=== PATIENT | female | born 1955 | race Caucasian/White ===

== ENCOUNTER → 2017-07-27 15:46 | Outpatient (CLI) | payer MEDICARE ==
[2014-12-18 09:49] VITALS: BMI 25.2
[~2017-07-27 15:46] MED LIST: AMANTADINE100 M1 PO; ASPIRIN81 MG PO; BACLOFEN PO; BACLOFEN20 M1 PO; CALCIUM PO; CRESTOR20 MG PO; CYMBALTA60 MG PO; DESYREL50 MG; ESTRACE2 MG PO; GLUCOPHAGE1000 MG PO; K-DUR20 MEQ PO; KLONOPIN1 MG PO; LASIX40 MG PO; LIORESAL 10 MG10 MG PO; MACROBID100 MG PO; MEDROL DOSE PACK4 MG PO; NEURONTIN600 MG PO; NEURONTIN800 MG PO; NORVASC5 MG PO; PLAVIX75 MG PO; SYNTHROID75 MCG PO; TENORMIN25 MG PO; TENORMIN50 MG PO
== END | disposition home or self-care (01) ==
LOC: D.US 14:30
DX: I65.23 Occlusion and stenosis of bilateral carotid arteries (principal); R09.89 Other specified symptoms and signs involving the circulatory and respiratory systems

== ENCOUNTER → 2017-12-10 09:30 | Outpatient (CLI) | payer MEDICARE ==
[2014-12-18 09:49] VITALS: BMI 25.2
== END | disposition home or self-care (01) ==
LOC: D.MRI 09:30
DX: G35 Multiple sclerosis (principal)

== ENCOUNTER → 2018-05-18 08:02 | Outpatient (CLI) | payer MEDICARE ==
[2014-12-18 09:49] VITALS: BMI 25.2
[~2018-05-18 08:02] MED LIST changes: +BREO ELLIPTA 11 EACH INH; +NASONEX NASAL S17 GM NS; +SPIRIVA RESPIMAT4 G1 INH; +XANAX2 MG PO; +ZANAFLEX2 M1 PO
[2018-05-18 08:47] LABS: BASOPHILS 0.2 % (0-2); EOSINOPHILS 1.1 % (0-7); HEMATOCRIT 41.8 % (36.0-48.0); HEMOGLOBIN 14.9 g/dL (12-16); IMMATURE GRANULOCYTES 0.3 % (0-5); LYMPHOCYTES 41.8 % (15-50); MCH 33.2 pg (26.0-34.0); MCHC 35.6 g/dL (31.0-37.0); MCV 93.1 fL (80.0-100.0); MEAN PLATELET VOLUME 9.6 fL (7.4-10.4); MONOCYTES 5.4 % (2-11); NEUTROPHILS 51.2 % (40-80); PLATELET COUNT 229 10x3/uL (130-400); RBC 4.49 10x6/uL (4.00-5.40); RDW 13.6 % (11.5-14.5); WBC 9.3 10x3/uL (4.8-10.8)
[2018-05-18 09:04] LABS: % SATURATION 30 % (15-55); IRON 102 ug/dl (35-150); TOTAL IRON BIND CAPACITY 338 ug/dl (260-445); UNSAT IRON BIND CAPACITY 236 ug/dl (150-375)
[2018-05-18 09:19] LABS: PROTIME 12.8 SECONDS (11.6-15.0)
[2018-05-18 09:22] LABS: ALBUMIN 3.5 g/dL (3.4-5.0); ANION GAP 12.4 mmol/L (8-16); BILIRUBIN - DIRECT 0.15 mg/dL (0.00-0.30); BILIRUBIN - INDIRECT 0.22 mg/dL (0.00-1.00); BILIRUBIN - TOTAL 0.37 mg/dL (0.2-1.3); CALCIUM 9.3 mg/dL (8.5-10.1); CARBON DIOXIDE 28.7 mmol/L (21.0-32.0); CHOL - HDL RATIO 3.4 ratio (2.3-4.1); CREATININE - SERUM 0.9 mg/dL (0.6-1.3); LDL-HDL RATIO 1.3 ratio (1.5-3.5); POTASSIUM - SERUM 4.1 mmol/L (3.5-5.1); PROTEIN - SERUM 7.2 g/dL (6.4-8.2)
[2018-05-19 07:33] LABS: FOLATE (FOLIC ACID) - SERUM 19.5 ng/mL (>3.0)
[2018-05-19 11:20] LABS: HEPATITIS C ANTIBODY <0.1 (0.0-0.9)
[2018-05-19 12:17] LABS: HAPTOGLOBIN 212 mg/dL (34-200)
[2018-05-19 14:22] LABS: ANA REFLEX - ANTICHROMATIN ABS <0.2 AI (0.0-0.9); ANA REFLEX - CENTROMERE B ABS <0.2 AI (0.0-0.9); ANA REFLEX - DBL STRANDED DNA <1 IU/mL (0-9); ANA REFLEX - DIRECT Positive (Negative); ANA REFLEX - JO-1 AB <0.2 AI (0.0-0.9); ANA REFLEX - RNP ANTIBODIES <0.2 AI (0.0-0.9); ANA REFLEX - SCL-70 <0.2 AI (0.0-0.9); ANA REFLEX - SJOGRENS AB SSB <0.2 AI (0.0-0.9); ANA REFLEX - SMITH AB <0.2 AI (0.0-0.9)
[2018-05-20 15:24] LABS: MITOCHONDRIAL ANTIBODY 4.4 Units (0.0-20.0)
== END | disposition home or self-care (01) ==
LOC: D.US 05-16 07:00 → D.LAB 05-16 07:30 → D.US 08:02
PROVIDERS: Internal Medicine Gastroenterology
DX: R79.89 Other specified abnormal findings of blood chemistry (principal)

== ENCOUNTER 2018-05-27 07:29 | Outpatient (CLI) | payer MEDICARE ==
[~2018-05-27] VITALS: Ht 167.6 cm; Wt 80.0 kg
--- NOTE | ~2018-05-27 | HEMODYNAMI ---
PATIENT:SAMANTHA MARINO MEDICAL RECORD: [id number] : 57 LOCATION:[facility] ADMISSION DATE: 05/27/18 Generatedon:05/27/201810:43 Patient name: SAMANTHA MARINO Patient #: [id number] SSN: : 1955 Date of study: 05/27/2018 Page: Of Hemodynamic Procedure Report Patient Data Patient Demographics Procedure consent was obtained First Name: SAMANTHA Gender: Female Last Name: JAMILA : 1955 [facility] Initial: FERMIN Age: 62 year(s) Patient #: [id number] Race: Additional ID: [id number] Contact details Address: [address] [place] [address] State: [place] City: [place] Zip code: [address] Past Medical History History of disease Date Diagnosis Comments CAD Allergies: No known allergies Admission Admission Data Admission Date: 05/27/2018 Admission Time: 7:29 Height (in.): 66 BSA: 1.89 (m2) Height (cm.): 167.64 BMI: 28.08 (kg/m2) Weight (lbs.): 174 Weight (kg.): 78.93 Lab Results Lab Result Date: 05/27/2018 Lab Result Time: 0:00 Biochemistry Name Units Result Min Max BUN mg/dl 11 --(-*--)-- 7 18 Creatinine mg/dl 0.7 --(*---)-- 0.6 1.3 CBC Name Units Result Min Max Hemoglobin g/dl 14.8 --(-*--)-- 13.5 17.5 Procedure Procedure Types Cath Procedure Diagnostic Procedure C [facility] w/Coronaries Sedation Charges Moderate Sedation up to 15 minutes PCI Procedure Coronary Stent Coronary Stent Initial Peripheral Cath Diagnostic Procedure 4-Vessel Subclavian Arteriogram Uni Procedure Description Procedure Date Procedure Date: 05/27/2018 Procedure Start Time: 10:26 Procedure End Time: 10:41 Procedure Staff Name Function Noe Bernstein MD Performing Physician Padma Grimes RT Monitor Karla Pedro RN Nurse Radha Velazquez RT Scrub Kalyan Bauman RN Toaster Element Repairer Procedure Data Cath Procedure Fluoroscopy Diagnostic fluoroscopy Total fluoroscopy Time: 2.9 time: 2.9 min min Diagnostic fluoroscopy Total fluoroscopy dose: 333 dose: 333 mGy mGy Contrast Material Contrast Material Type Amount (ml) Isovue 300 58 Entry Location Entry Primary Successful Side Size Upsize Upsize Entry Closure Succes sful Closure Location (Fr) 1 (Fr) 2 (Fr) Remarks Device Remarks Femoral Right 5 Fr 6 Fr Exoseal artery Short Estimated blood loss: 10 ml Diagnostic catheters Device Type Used For End Catheter Placement MULTIPACK Pigtail 5 Fr Procedure catheter MULTIPACK JL 4.0 5Fr Procedure catheter MULTIPACK 3DRC 5Fr Procedure catheter Procedure Complications No complications Procedure Medications Medication Administration Route Dosage 0.9% NaCl I.V. 100 ml/hr Oxygen etCO2 Nasal cannula 2 l/min Lidocaine 2% added to field 20 Heparin Flush Bag added to field 2 bags (1000units/500ml NS) Versed I.V. 2 mg Fentanyl I.V. 50 mcg Versed I.V. 1 mg Fentanyl I.V. 25 mcg Heparin Bolus I.V. 4000 units Hemodynamics Rest BSA: 1.89 (m2) HGB: 14.8 (g/dl) O2 Consumption: Estimated: 171.17 (ml/min) O2 Co nsumption indexed: Estimated:90.57 (ml/min/m) Heart Rate: 60 (bpm) Snapshots Pre Cath Intra NCS Post Cath Vital Signs Time Heart Resp SPO2 etCO2 NIBP (mmHg) Rhythm Pain Sedation Rate (ipm) (%) (mmHg) Status Level (bpm) 9:50:38 58 15 98 38.2 160/81(131) SB 0 (11) 10(A) , No pain 9:54:54 57 12 100 39.7 151/83(127) SB 0 (11) 10(A) , No pain 9:59:13 55 13 100 49.4 142/67(116) SB 0 (11) 10(A) , No pain 10:03:32 57 12 100 44.9 118/70(98) SB 0 (11) 10(A) , No pain 10:07:49 55 14 100 41.9 113/63(98) SB 0 (11) 10(A) , No pain 10:12:02 57 16 100 33.7 118/60(88) SB 0 (11) 10(A) , No pain 10:16:13 53 15 100 38.9 116/67(97) SB 0 (11) 10(A) , No pain 10:21:24 55 14 100 40.4 113/68(92) SB 0 (11) 10(A) , No pain 10:25:36 54 12 100 44.9 117/64(85) SB 0 (11) 10(A) , No pain 10:29:48 55 11 100 56.2 127/68(101) SB 0 (11) 10(A) , No pain 10:34:04 56 13 100 41.9 132/71(108) SB 0 (11) 9(A) , No pain 10:38:20 58 12 100 42.6 147/74(108) SB 0 (11) 10(A) , No pain Medications Time Medication Route Dose Verified Delivered Reason Notes Effectiveness by by 9:53:06 0.9% NaCl I.V. 100 Noe Karla used for ml/hr Amandeep Pedro litigation docket manager 9:53:16 Oxygen etCO2 2 Noe Karla used for Nasal l/min Amandeep Pedro procedure cannula RN 9:53:24 Lidocaine 2% added 20ml Noe Noe for local to vial Amandeep Bernstein MD anesthetic field 9:53:29 Heparin Flush added 2 Noe Noe used for Bag to bags Amandeep Bernstein MD procedure (1000units/500ml field NS) 10:21:10 Versed I.V. 2 mg Noe Karla for sedation Amandeep Pedro RN 10:21:18 Fentanyl I.V. 50 Noe Karla for sedation mcg Amandeep Pedro RN 10:29:33 Versed I.V. 1 mg Noe Karla for sedation Amandeep Pedro RN 10:29:39 Fentanyl I.V. 25 Noe Karla for sedation mcg Amandeep Pedro RN 10:32:45 Heparin Bolus I.V. 4000 Noe Karla for verif ied units Amandeep Pedro anticoagulation with Dr. ANGELA Bernstein Procedure Log Time Note 9:33:04 Kalyan Bauman RN sent for patient. Start room use. 9:33:05 Time tracking: Regular hours (M-F 7:00 - 5:00) 9:33:08 Plan of Care:Hemodynamics will remain stable., Cardiac rhythm will remain stable., Comfort level will be maintained., Respiratory function will remain adequate., Patient/ family verbilizes understanding of procedure., Procedure tolerated without complication., Recovers from procedure without complications.. 9:41:54 Patient received from Pre/Post Procedure Room to CCL 1 Alert and oriented. Tansferred to table in Supine position. 9:41:56 Warm blankets applied, and kaylee hugger turned on for patient comfort. 9:41:56 Correct patient and procedure confirmed by team. 9:41:57 Signed procedure consent form obtained from patient. 9:41:58 ECG and BP/O2 sat monitors applied to patient. 9:41:59 Full Disclosure recording started 9:49:24 Vital chart was started 9:51:26 Baseline sample Acquired. 9:51:53 Rhythm: sinus bradycardia 9:53:06 0.9% NaCl 100 ml/hr I.V. was administered by Karla Pedro RN; used for procedure; 9:53:16 Oxygen 2 l/min etCO2 Nasal cannula was administered by Karla ePdro RN; used for procedure; 9:53:23 H&P Date Dictated: 05/23/2018 Within 30 days and on chart., H&P Addendum completed by physician on day of procedure. (MUST COMPLETE FOR ALL OUTPATIENTS). 9:53:24 Lidocaine 2% 20ml vial added to field was administered by Noe Bernstein MD; for local anesthetic; 9:53:25 Pre-procedure instructions explained to patient. 9:53:25 Pre-op teaching completed and patient verbalized understanding. 9:53:28 Family in patients room. 9:53:29 Heparin Flush Bag (1000units/500ml NS) 2 bags added to field was administered by Noe Bernstein MD; used for procedure; 9:53:32 Patient NPO since Midnight. 9:53:39 Patient allergic to No known allergies 9:53:42 Is the patient allergic to Iodine/contrast media? No. 9:53:46 Is patient on blood thinner?Yes 9:53:49 ACC The patient was administered the following blood thiners within the last 24 hours: ACCPlavix 9:53:51 Patient diabetic? Yes. 9:53:52 If diabetic: On Metformin? Yes 9:53:55 If on Metformin: Last Dose? 05/24/2018 9:53:58 Previous problem with sedation/anesthesia? No ? 9:53:59 Snore? Yes 9:54:00 Sleep apnea? No 9:54:01 Deviated septum? No 9:54:02 Opens mouth fully? Yes 9:54:03 Sticks out tongue? Yes 9:54:08 Airway obstruction? Yes ASTHMA 9:54:11 Dentures? No ? 9:54:14 Pre procedure: right dorsailis pedis pulse 2+ Normal; easily identifiable; not easily obliterated 9:54:16 Patient pain scale 0/10 ?. 9:54:21 IV patent on arrival in left forearm with 0.9% NaCl at [facility]. 9:55:54 Patient Height : 66 inches 9:55:56 Patient Weight : 174 lbs 9:59:25 Zero performed for pressure channel P1 10:00:37 Zero performed for pressure channel P1 10:03:14 Lab Result : BUN 11 mg/dl 10:03:14 Lab Result : Creatinine 0.7 mg/dl 10:03:14 Lab Result : Hemoglobin 14.8 g/dl 10:03:17 Lab results completed and on chart. 10:03:22 Right groin area was prepped with chlora-prep and draped in sterile fashion 10:03:22 Alarms reviewed by R. N. 10:03:23 Sharps counted by scrub and verified by R.N. 10:03:28 Use device set Femoral Dx 10:03:29 ACIST Syringe (94520) opened to sterile field. 10:03:30 Bag Decanter (2002S) opened to sterile field. 10:03:31 ACIST Hand Control (99211) opened to sterile field. 10:03:32 ACIST Manifold (87373) opened to sterile field. 10:03:33 Tegaderm 4 x 4 (1626W) opened to sterile field. 10:03:40 Medline Cath Pack ([id number]) opened to sterile field. 10:03:41 DIAGNOSTIC WIRE .035 260cm J wire (178200) opened to sterile field. 10:03:42 DIAGNOSTIC Multipack 5Fr catheter set ([id number]) opened to sterile field. 10:03:45 SHEATH Prelude 5Fr 0.035 (LIH-4W-03-035) opened to sterile field. 10::37 --------ALL STOP TIME OUT------ 10::38 Final Timeout: patient, procedure, and site verified with staff and physician. All members of the team are in agreement. 10:20:40 Right groin site verified by team. 10::43 Physical assessment completed. ASA score P 2 - A patient with mild systemic disease as per Noe Bernstein MD. 10::47 Sedation plan: IV Moderate Sedation Medication:Versed, Fentanyl 10:: Versed 2 mg I.V. was administered by Karla Pedro RN; for sedation; 10::18 Fentanyl 50 mcg I.V. was administered by Karla Pedro RN; for sedation; 10::42 Procedure started. 10::37 Local anesthetic to right femoral artery with Lidocaine 2% by Noe Bernstein MD.INITIAL ACCESS ONLY 10:28:03 A 5 Fr sheath was inserted into the Right Femoral artery 10::21 A MULTIPACK Pigtail 5 Fr catheter was advanced over the wire and used for Procedure. 10:28:24 LV gram done using ALMEIDA 10::27 Injector settings: Ml/sec: 10, Volume: 20, 10:29:03 EF : 60 % 10:29:05 Catheter removed. 10:29:10 A MULTIPACK JL 4.0 5Fr catheter was advanced over the wire and used for Procedure. 10:29:33 Versed 1 mg I.V. was administered by Karla Pedro RN; for sedation; 10::39 Fentanyl 25 mcg I.V. was administered by Karla Pedro RN; for sedation; 10:30:27 LCA angiography performed. 10:30:36 Catheter removed. 10:30:41 A MULTIPACK 3DRC 5Fr catheter was advanced over the wire and used for Procedure. 10:30:48 RCA angiography performed. 10:31:33 Left subclavian angiography performed 10::37 Catheter removed. 10:31:39 SHEATH 6FR [place] (FGP088) opened to sterile field. 10:31:46 CHOICE PT Extra Support 182cm wire ([id number]) opened to sterile field. 10:31:51 INFLATOR Merit BasixCompak (HI0160) opened to sterile field. 10:32:29 GUIDE 6FR XBLAD 3.5 catheter ([id number]) opened to sterile field. 10:32:45 Heparin Bolus 4000 units I.V. was administered by Karla Pedro RN; for anticoagulation; verified with Dr. Bernstein 10:32:54 Sheath upsized to a 6 Fr Short. 10:33:12 6 Fr XBLAD 3.5 guide catheter was inserted over the wire 10:34:05 CHOICE ES 182 wire advanced. 10:34:55 Wire advanced across lesion. 10:35:54 Place stent Inflation Number: 1 A CARMEN RX 3.0 x 18 stent ([id number]) was prepped and advanced across the Mid LAD. The stent was deployed at 17 HALEY for 0:10 (min:sec). 10:36:10 Inflation number: 2 The stent balloon was then re-inflated across the Mid LAD to 17 HALEY for 0:10 (min:sec). 10:36:25 Stent catheter was removed intact over wire. 10:36:26 Wire removed. 10:36:26 Guide catheter removed. 10:36:41 EXOSEAL 6Fr (EX600) opened to sterile field. 10:36:51 Sheath removed intact; hemostasis achieved with Exoseal to the Right Femoral artery. 10:36:58 Procedure ended.(Physican Out) 10:38:22 Fluoroscopy time 02.90 minutes. 10:38:26 Flurop Dose total: 333 10:38:26 Fluoroscopy dose: 333 mGy 10:38:29 Contrast amount:Isovue 300 58ml. 10:38:33 Post-op/insertion site Right Femoral artery dressed using a 4 x 4 and Tegaderm. 10:38:37 Post right femoral artery:stable, soft, clean and dry 10:38:41 Post-procedure physical assessment completed. ASA score P 2 - A patient with mild systemic disease as per Noe Bernstein MD. 10:38:44 Post procedure rhythm: sinus rhythm 10:38:46 Estimated blood loss: 10 ml 10:38:48 Post procedure instruction explained to patient.Patient verbalizes understanding. 10:38:48 Patient needs reinforcement of post procedure teaching. 10:39:17 Procedure type changed to Cath procedure, Diagnostic procedure, LHC, LHC w/Coronaries, Sedation Charges, Moderate Sedation up to 15 minutes, PCI procedure, Coronary Stent, Coronary Stent Initial, Peripheral Cath Diagnostic Procedure, 4-Vessel, Subclavian Arteriogram Uni 10:41:27 Procedure and supply charges have been captured, reviewed, submitted and are correct. 10:41:27 Vital chart was stopped 10:41:31 Procedure Complication : No complications 10:41:33 See physician's report for complete and final results. 10:41:35 Report given to Pre/Post Procedure Room. 10:41:37 Patient transfered to Pre/Post Procedure Room with Bed. 10:41:39 Procedure ended. 10:41:39 Full Disclosure recording stopped 10:41:44 End room use (Document Last) Intervention Summary Intervention Notes Time ActionType Lesion and Equipment Used Action# Pressure Duration Attributes 10:35:54 Place stent Mid LAD CARMEN RX 3.0 x 1 17 00:10 18 stent ([id number]) 10:36:10 Reinflate Mid LAD CARMEN RX 3.0 x 2 17 00:10 stent 18 stent balloon ([id number]) Device Usage Item Name Manufacture Quantity Catalog Number Hospital Part Current Minimal Lot# / Charge Number Stock Stock Serial# Code ACIST Syringe Acist 1 97199 847407 638118 806788 20 (67828) Medical [employer] Bag Decanter Microtek 1 2002S 589791 16954 227315 5 (2002S) Medical Inc. ACIST Hand Acist 1 78057 589565 543133 196333 5 Control (80966) [employer] Systems Inc ACIST Manifold Acist 1 83651 397064 968128 004888 5 (65818) Medical Systems Inc Tegaderm 4 x 4 3M 1 1626W 345876 977730 528949 5 (1626W) Medline Cath Medline 1 [id number] 523746 47656 837828 5 Pack ([id number]) DIAGNOSTIC WIRE St Beny 1 009447 783687 194027 061383 30 .035 260cm J wire (532004) DIAGNOSTIC Cardinal 1 EY5368 516823 62870 655750 30 Multipack 5Fr Health catheter set ([id number]) SHEATH Prelude Merit 1 FFL-4I-04-035 903271 810526 252573 5 5Fr 0.035 Medical ([id number]-6Z-60-035) MULTIPACK Cardinal 1 157630 5 Pigtail 5 Fr Health catheter MULTIPACK JL Cardinal 1 518149 5 4.0 5Fr Health catheter MULTIPACK 3DRC Cardinal 1 288107 5 5Fr catheter Health SHEATH 6FR Terumo 1 ODP512 964541 038508 719643 40 [place] (SPR874) CHOICE PT Extra [place] 1 [id number] 296734 082239 403251 5 Support 182cm Scientific wire ([id number]) INFLATOR Merit Merit 1 RJ0809 759006 952092 668642 15 [facility] (PH1871) GUIDE 6FR XBLAD Cardinal 1 [id number] 770265 099457 360817 10 3.5 catheter Health ([id number]) CARMEN RX 3.0 x Medtronic 1 [id number] 132086 9025601 120257 5 [id number] 18 stent ([id number]) EXOSEAL 6Fr Cardinal 1 EX600 209580 097287 726248 10 (EX600) Health Signature Audit [place] Stage Time Signature Unsigned Intra-Procedure 05/27/2018 Padma Grimes 10:43:55 AM RT(R) Signatures Monitor : Padma Grimes Signature : RT Date : Time : [address] [place] [address]
--- NOTE | ~2018-05-27 | OP ---
PATIENT NAME: SAMANTHA MARINO MEDICAL RECORD: [id number] :57 LOCATION:D.[facility] ADMISSION DATE: SURGEON: LEONOR MESSINA MD DATE OF OPERATION: 05/27/2018 DATE OF SERVICE: 05/27/2018 PROCEDURES: 1. PTCA stent LAD. 2. Left heart catheterization. 3. Selective coronary angiography. 4. Left ventriculogram. 5. Subclavian angiography. INDICATION: Angina, left arm claudication, peripheral vascular disease, previous subclavian stenting, coronary artery disease. PROCEDURE IN DETAIL: After informed consent was obtained and after a detailed explanation of risks, benefits as well as alternative therapies, the patient elected to proceed with angiogram and angioplasty. The right femoral area was prepped and draped in normal sterile fashion. The right femoral artery was cannulated via modified Seldinger technique with placement of 6-Indonesian sheath. All catheters exchanged through this sheath. FINDINGS: The left ventriculogram was performed in standard 30-degree ALMEIDA view, reveals good cardiac wall motion throughout all segments. Overall ejection fraction estimated at 60%. SELECTIVE CORONARY ANGIOGRAPHY: 1. Left main is with no significant angiographic disease. 2. Left anterior descending has previously placed stents with 75-80% in-stent restenosis in the mid vessel. 3. Left circumflex has previously placed stents, these are widely patent with no significant restenosis. No disease elsewise. 4. Right coronary has mild irregularities, but no flow-limiting stenosis. 5. The left subclavian has a previously placed stent. This is widely patent with minimal in-stent restenosis. No disease elsewise throughout the subclavian. PTCA STENT OF THE LAD: The stent used was a 3.0 x 18 mm David. Result was 0% residual stenosis. OVERALL IMPRESSION: Successful percutaneous transluminal coronary angioplasty stent of the left anterior descending going from 75-80% in-stent restenosis to 0% residual stenosis. TRANSINT:[id number] Voice Confirmation ID: [id number] DOCUMENT ID: [id number] OPERATIVE REPORT [id number] SAMANTHA MARINO JEFFREY MD at 1059 CC: [id number] DICTATION DATE: 05/27/18 1044 OFFICE 365 CONSULTANT: 05/27/18 1052 DEP CLI 05/27/18 [id number] [place] [address]
[~2018-05-27 07:29] MED LIST changes: -BREO ELLIPTA 11 EACH INH; -NASONEX NASAL S17 GM NS; -SPIRIVA RESPIMAT4 G1 INH; -XANAX2 MG PO; -ZANAFLEX2 M1 PO
[2018-05-27] MEDS ORDERED: ZANAFLEX2 M1 PO (08:11)
[2018-05-27] MEDS ORDERED: BREO ELLIPTA 11 EACH INH (08:11)
[2018-05-27] MEDS ORDERED: KLONOPIN1 MG PO (08:13)
[2018-05-27] MEDS ORDERED: SPIRIVA RESPIMAT4 G1 INH (08:14)
[2018-05-27] MEDS ORDERED: NASONEX NASAL S17 GM NS (08:15)
[2018-05-27] MEDS ORDERED: XANAX2 MG PO (08:16)
[2018-05-27 08:18] VITALS: BP 115/51; Ht 167.6 cm; Wt 80.0 kg
[2018-05-27 08:26] LABS: BASOPHILS 0.3 % (0-2); EOSINOPHILS 1.5 % (0-7); HEMATOCRIT 42.3 % (36.0-48.0); HEMOGLOBIN 14.8 g/dL (12-16); IMMATURE GRANULOCYTES 0.2 % (0-5); LYMPHOCYTES 42.1 % (15-50); MCH 32.7 pg (26.0-34.0); MCV 93.6 fL (80.0-100.0); MEAN PLATELET VOLUME 9.8 fL (7.4-10.4); MONOCYTES 7.1 % (2-11); NEUTROPHILS 48.8 % (40-80); PLATELET COUNT 228 10x3/uL (130-400); RBC 4.52 10x6/uL (4.00-5.40); RDW 13.8 % (11.5-14.5); WBC 9.6 10x3/uL (4.8-10.8)
[2018-05-27 08:40] LABS: CALC OSMOLALITY 282 mosm/kg (275-300); CALCIUM 9.4 mg/dL (8.5-10.1); CARBON DIOXIDE 26.7 mmol/L (21.0-32.0); CHLORIDE - SERUM 105 mmol/L (98-107); CREATININE - SERUM 0.7 mg/dL (0.6-1.3); GLUCOSE 116 mg/dL (74-106); POTASSIUM - SERUM 3.8 mmol/L (3.5-5.1); SODIUM 142 mmol/L (136-145); UREA NITROGEN 11 mg/dL (7-18); eGFR NON AFRICAN AMERICAN 90 mL/min (90-120)
== END 2018-05-27 15:22 | disposition home or self-care (01) ==
LOC: D.CATH 07:29
PROVIDERS: Internal Medicine Interventional Cardiology
DX: I25.119 Atherosclerotic heart disease of native coronary artery with unspecified angina pectoris (principal); T82.855A Stenosis of coronary artery stent, initial encounter; I70.218 Atherosclerosis of native arteries of extremities with intermittent claudication, other extremity; T82.856A Stenosis of peripheral vascular stent, initial encounter; Z01.812 Encounter for preprocedural laboratory examination

== ENCOUNTER → 2018-06-14 18:10 | Outpatient (CLI) | payer MEDICARE ==
[2018-05-27 08:18] VITALS: BMI 28.4
[~2018-06-14 18:10] MED LIST changes: +BREO ELLIPTA 11 EACH INH; +NASONEX NASAL S17 GM NS; +SPIRIVA RESPIMAT4 G1 INH; +XANAX2 MG PO; +ZANAFLEX2 M1 PO
== END | disposition home or self-care (01) ==
LOC: D.LABREF 18:10
DX: D72.829 Elevated white blood cell count, unspecified (principal)

== ENCOUNTER → 2018-06-24 08:18 | Outpatient (CLI) | payer MEDICARE ==
[2018-05-27 08:18] VITALS: BMI 28.4
== END | disposition home or self-care (01) ==
LOC: D.NM 08:15
DX: N28.89 Other specified disorders of kidney and ureter (principal)

== ENCOUNTER 2018-06-29 07:55 | Outpatient (CLI) | payer MEDICARE ==
[2018-05-27 08:18] VITALS: BMI 28.4
== END 2018-06-29 23:59 | disposition home or self-care (01) ==
LOC: D.MAMMO 07:55
DX: Z12.31 Encounter for screening mammogram for malignant neoplasm of breast (principal)

== ENCOUNTER → 2018-07-21 07:30 | Outpatient (CLI) | payer MEDICARE ==
[2018-05-27 08:18] VITALS: BMI 28.4
== END | disposition home or self-care (01) ==
LOC: D.MRI 07:30
DX: N28.89 Other specified disorders of kidney and ureter (principal)

== ENCOUNTER → 2018-08-19 16:26 | Outpatient (CLI) | payer MEDICARE ==
[2018-05-27 08:18] VITALS: BMI 28.4
== END | disposition home or self-care (01) ==
LOC: D.CT 16:26
DX: I73.9 Peripheral vascular disease, unspecified (principal); M79.605 Pain in left leg; M79.604 Pain in right leg

== ENCOUNTER 2018-09-13 08:32 | Outpatient (CLI) | payer MEDICARE ==
[~2018-09-13] VITALS: Ht 167.6 cm; Wt 80.5 kg
--- NOTE | ~2018-09-13 | HEMODYNAMI ---
PATIENT:SAMANTHA MARINO MEDICAL RECORD: [id number] : 57 LOCATION:[facility] ADMISSION DATE: 09/13/18 Generatedon:09/13/201811:42 Patient name: SAMANTHA MARINO Patient #: [id number] SSN: : 1955 Date of study: 09/13/2018 Page: Of Hemodynamic Procedure Report Patient Data Patient Demographics Procedure consent was obtained First Name: SAMANTHA Gender: Female Last Name: JAMILA : 1955 Middle Initial: FERMIN Age: 63 year(s) Patient #: [id number] Race: Additional ID: [id number] Contact details [address]: [address] [place] [address] State: [place] City: [place] Zip code: [address] Past Medical History History of disease Date Diagnosis Comments CAD Allergies: No known allergies Admission Admission Data Admission Date: 09/13/2018 Admission Time: 8:32 Procedure Procedure Types Cath Procedure Peripheral Cath Diagnostic Procedure Abd/Extremity Extremities Left Lower Ext Arterio Procedure Description Procedure Date Procedure Date: 09/13/2018 Procedure Start Time: 10:31 Procedure Staff Name Function João Mejia MD Performing Physician Isaias York RT Monitor Nica Kwok RN Nurse Procedure Data Cath Procedure Fluoroscopy Diagnostic fluoroscopy Total fluoroscopy Time: 8.5 time: 8.5 min min Diagnostic fluoroscopy Total fluoroscopy dose: 855 dose: 855 mGy mGy Contrast Material Contrast Material Type Amount (ml) Isovue 300 55 Entry Location Entry Primary Successful Side Size Upsize Upsize Entry Closure Succes sful Closure Location (Fr) 1 (Fr) 2 (Fr) Remarks Device Remarks Femoral Right 5 Fr Exoseal artery Diagnostic catheters Device Type Used For End Catheter Placement DIAGNOSTIC IMT 5Fr Catheter ([id number]) Procedure Medications Medication Administration Route Dosage Heparin Flush Bag added to field 3 bags (1000units/500ml NS) Lidocaine 1% added to field 20 Versed I.V. 1 mg Fentanyl I.V. 50 mcg Heparin Bolus I.V. 4000 units Versed I.V. 1 mg Fentanyl I.V. 50 mcg Hemodynamics Rest Heart Rate: 66 (bpm) Snapshots Pre Cath Intra NCS Post Cath Vital Signs Time Heart Resp SPO2 etCO2 NIBP (mmHg) Rhythm Pain Sedation Rate (ipm) (%) (mmHg) Status Level (bpm) 10:15:16 63 13 99 37.1 137/76(112) NSR 0 (11) 9(A) , No pain 10:19:26 67 12 100 37.1 137/76(126) NSR 0 (11) 9(A) , No pain 10:23:40 66 11 100 37.8 143/83(121) NSR 0 (11) 9(A) , No pain 10:27:54 65 11 100 37.1 140/77(119) NSR 0 (11) 9(A) , No pain 10:32:12 66 12 99 37.8 146/78(113) NSR 0 (11) 9(A) , No pain 10:36:30 64 10 100 38.6 144/81(109) NSR 0 (11) 9(A) , No pain 10:40:48 66 9 99 39.3 144/72(114) NSR 0 (11) 8(A) , No pain 10:45:02 64 17 99 30.2 135/78(112) NSR 0 (11) 8(A) , No pain 10:49:18 64 9 99 31.8 139/70(114) NSR 0 (11) 8(A) , No pain 10:53:34 63 10 99 33.3 122/76(105) NSR 0 (11) 8(A) , No pain 10:57:46 64 10 99 30.2 131/71(110) NSR 0 (11) 8(A) , No pain 11:02:02 65 11 99 40.1 144/74(113) NSR 0 (11) 8(A) , No pain 11:06:20 66 11 100 41.6 150/77(125) NSR 0 (11) 8(A) , No pain 11:10:38 66 10 100 42.4 152/80(123) NSR 0 (11) 8(A) , No pain 11:14:56 68 11 100 41.6 154/80(131) NSR 0 (11) 8(A) , No pain 11:19:16 69 12 99 39.3 159/78(132) NSR 0 (11) 8(A) , No pain 11:23:35 70 11 99 40.1 153/83(125) NSR 0 (11) 8(A) , No pain 11:27:53 68 11 98 43.9 137/75(117) NSR 0 (11) 8(A) , No pain 11:32:09 69 9 98 44.6 155/79(119) NSR 0 (11) 8(A) , No pain 11:36:29 68 9 98 43.1 138/75(111) NSR 0 (11) 8(A) , No pain 11:40:45 69 7 98 43.1 140/76(106) NSR 0 (11) 8(A) , No pain Medications Time Medication Route Dose Verified Delivered Reason Notes Effe ctiveness by by 10:13:37 Heparin Flush added 3 João Moyer used for Bag to bags Roberto Mejia procedure (1000units/500ml field MD FAGAN NS) 10:13:48 Lidocaine 1% added 20ml João Moyer for local to vial Roberto Mejia anesthetic field MD FAGAN 10:38:32 Versed I.V. 1 mg João Paz for Roberto Kwok RN sedation 10:38:43 Fentanyl I.V. 50 João Paz for mcg Roberto Kwok RN sedation 10:53:50 Heparin Bolus I.V. 4000 João Paz Per units Roberto Kwok RN physician 11:18:30 Versed I.V. 1 mg João Paz for Roberto Kwok RN sedation 11:18:39 Fentanyl I.V. 50 João Paz for mcg Roberto Kwok RN sedation Procedure Log Time Note 9:57:56 Brandi Kwok RN sent for patient. Start room use. 9:58:30 Time tracking: Regular hours (M-F 7:00 - 5:00) 9:58:43 Plan of Care:Hemodynamics will remain stable., Cardiac rhythm will remain stable., Comfort level will be maintained., Respiratory function will remain adequate., Patient/ family verbilizes understanding of procedure., Procedure tolerated without complication., Recovers from procedure without complications.. 9:58:54 Patient received from Outpatients to IR Alert and oriented. Tansferred to table in Supine position. 9:58:55 Correct patient and procedure confirmed by team. 9:58:58 Signed procedure consent form obtained from patient. 9:58:59 ECG and BP/O2 sat monitors applied to patient. 9:59:01 Full Disclosure recording started 9:59:02 - 9:59:05 H&P Date Dictated: 09/13/2018 H&P Addendum completed by physician on day of procedure. (MUST COMPLETE FOR ALL OUTPATIENTS). 9:59:06 Pre-procedure instructions explained to patient. 9:59:06 Pre-op teaching completed and patient verbalized understanding. 9:59:08 Family in waiting room. 9:59:09 Patient NPO since Midnight. 9:59:17 Patient allergic to No known allergies 9:59:21 Is the patient allergic to Iodine/contrast media? No. 9:59:29 Is patient on blood thinner?Yes 9:59:33 ACC The patient was administered the following blood thiners within the last 24 hours: ACCPlavix 9:59:34 Patient diabetic? Yes. 9:59:36 If diabetic: On Metformin? Yes 9:59:42 If on Metformin: Last Dose? 09/12/2018 9:59:44 ----Pre-sedation anethsthesia assessment.---- 9:59:48 Previous problem with sedation/anesthesia? No ? 9:59:50 Snore? No 9:59:51 Sleep apnea? No 9:59:53 Deviated septum? No 9:59:55 Opens mouth fully? Yes 9:59:57 Sticks out tongue? Yes 10:00:00 Airway obstruction? No ? 10:00:07 Dentures? Yes IN 10:00:08 - 10:00:12 Use device set IR Diagnostic 10:00:13 ACIST Syringe (09589) opened to sterile field. 10:00:13 ACIST Hand Control (94525) opened to sterile field. 10:00:14 ACIST Manifold (80396) opened to sterile field. 10:00:14 Bag Decanter (2002S) opened to sterile field. 10:00:15 Sterile Angiographic Pack opened to sterile field. 10:00:15 Tegaderm 4 x 4 (1626W) opened to sterile field. 10:05:40 Pre procedure: right dorsailis pedis pulse Doppler 10:05:43 Pre procedure: left dorsailis pedis pulse Doppler 10:05:46 Pre procedure: right posterior tibial pulse Doppler 10:05:49 Pre procedure: left posterior tibial pulse Doppler 10:05:54 Patient pain scale 0/10 NO PAIN. 10:06:02 IV patent on arrival in right forearm with 0.9% NaCl at [facility]. 10:06:03 Sharps counted by scrub and verified by R.N. 10:06:04 Alarms reviewed by R. N. 10:06:06 Right groin area was prepped with chlora-prep and draped in sterile fashion 10:13:37 Heparin Flush Bag (1000units/500ml NS) 3 bags added to field was administered by João Mejia MD; used for procedure; 10:13:48 Lidocaine 1% 20ml vial added to field was administered by João alfaro MD; for local anesthetic; 10:14:05 Vital chart was started 10:14:06 Baseline sample Acquired. 10:30:38 --------ALL STOP TIME OUT------ 10:30:39 Final Timeout: patient, procedure, and site verified with staff and physician. All members of the team are in agreement. 10:30:40 Right groin site verified by team. 10:30:44 Fire Safety Assessment: A--An alcohol-based skin anteseptic being used preoperatively., C--Open oxygen or nitrous oxide is being used. 10:30:48 Sedation plan: IV Moderate Sedation Medication:Versed, Fentanyl 10:30:58 Procedure started. 10:31:01 Local anesthetic to right femoral artery with Lidocaine 1% by João Mejia MD.INITIAL ACCESS ONLY 10:37:21 BENTSON 145cm wire (B92380) opened to sterile field. 10:37:22 CORDERO 260 wire (C90719) opened to sterile field. 10:37:23 SHEATH 6FR Destination (RSR01) opened to sterile field. 10:37:24 TUBING Contrast Injection High Pressure (JCD830I) opened to sterile field. 10:37:25 SHEATH 5FR Challenge (ZFB841) opened to sterile field. 10:37:25 Micropuncture VSI 4FR kit opened to sterile field. 10:37:28 A DIAGNOSTIC IMT 5Fr Catheter ([id number]) was advanced over the wire an d used for . 10:37:31 Access obtained with 4Fr micropunture. 10:37:44 A 5 Fr sheath was inserted into the Right Femoral artery 10:38:32 Versed 1 mg I.V. was administered by Brandi Kwok RN; for sedation; 10:38:43 Fentanyl 50 mcg I.V. was administered by Brandi Kwok RN; for sedation ; 10:48:41 ROADRUNNER .035 260 glide wire (Q97299) opened to sterile field. 10:49:15 CXI SUPPORT .035 135 CM STR catheter (H45248) opened to sterile field. 10:52:57 INFLATOR BasixTOUCH (CA6877) opened to sterile field. 10:53:50 Heparin Bolus 4000 units I.V. was administered by Brandi Kwok RN; Per physician; 10:58:09 Inflate balloon Inflation number: 1 A Evercross 7 x 8 x 135 Balloon ([id number]) was prepped and advanced across the Proximal Common Iliac, Left, then inflated to 7 HALEY for 0:20 (min:sec). 11:10:55 Inflate balloon Inflation number: 1 A Evercross 5 x 6 x 135 Balloon ([id number]) was prepped and advanced across the Mid Superficial Femoral, Left, then inflated to 10 HALEY for 0:07 (min:sec). 11:12:35 SHEATH 6FR Challenge (YAI307) opened to sterile field. 11:18:30 Versed 1 mg I.V. was administered by Brandi Kwok RN; for sedation; 11:18:39 Fentanyl 50 mcg I.V. was administered by Brandi Kwok RN; for sedation ; 11:22:39 Place stent Inflation Number: 1 A Visipro 7 x 27 x 135 Stent ([id number]) was prepped and advanced across the Proximal Common Iliac, Right. The stent was deployed at 10 HALEY for 0:08 (min:sec). 11:24:52 SHEATH 6FR Challenge (EDZ655) opened to sterile field. 11:26:40 EXOSEAL 6Fr (EX600) opened to sterile field. 11:29:17 Sheath removed intact; hemostasis achieved with Exoseal to the Right Femoral artery. 11:30:26 Procedure ended.(Physican Out) 11:30:44 Fluoroscopy time 08.50 minutes. 11:30:47 Fluoroscopy dose: 855 mGy 11:30:47 Flurop Dose total: 855 11:30:49 Sharps counted by scrub and verified by R.N. 11:32:17 Insertion/operative site no bleeding no hematoma. 11:32:21 Post-op/insertion site Right Femoral artery dressed using a 4 x 4 and Tegaderm. 11:32:23 Post Procedure Pulses reassessed and unchanged 11:32:24 Post procedure instruction explained to patient.Patient verbalizes understanding. 11:32:25 Procedure and supply charges have been captured, reviewed, submitted an d are correct. 11:33:11 Contrast amount:Isovue 300 55ml. 11:41:20 Report given to Outpatients. 11:41:23 Patient transfered to Outpatients with Stretcher. 11:42:09 Vital chart was stopped Intervention Summary Intervention Notes Time ActionType Lesion and Equipment Used Action# Pressure Duration Attributes 10:58:09 Inflate Proximal Evercross 7 x 8 x 1 7 00:20 balloon Common 135 Balloon Iliac, Left ([id number]) 11:10:55 Inflate Mid Evercross 5 x 6 x 1 10 00:07 balloon Superficial 135 Balloon Femoral, ([id number]) Left 11:22:39 Place stent Proximal Visipro 7 x 27 x 1 10 00:08 Common 135 Stent Iliac, ([id number]) Right Device Usage Item Name Manufacture Quantity Catalog Number [facility] nt Minimal Lot# / Charge Number Stock Stock Serial# Code ACIST Syringe Acist 1 58026 072327 302515 31885 1 20 (47996) [employer] ACIST Hand Acist 1 53676 887744 046691 36591 6 5 Control (88343) [employer] ACIST Manifold Acist 1 70470 874960 680827 32038 3 5 (71745) [employer] Bag Decanter Microtek 1 2001S 336653 37685 98832 7 5 (2001S) Medical Inc. Sterile Cardinal 1 [id number] 714532 05826 3 5 Angiographic Pack Health Tegaderm 4 x 4 3M 1 1626W 836334 601330 35941 2 5 (1626W) BENTSON 145cm [employer] 1 K55819 265259 65842 8 5 wire (M98201) CORDERO 260 wire [employer] 1 N30471 676037 29807 75505 0 5 (Q07282) SHEATH 6FR Terumo 1 RSR01 113507 78736 25398 9 5 Destination (RSR01) TUBING Contrast Merit 1 [id number] 348784 900989 31731 3 5 Injection High Medical Pressure (RBR812Y) SHEATH 5FR Terumo 1 HET011 374633 980132 20832 2 5 Challenge (GBK216) Micropuncture VSI VSI VASCULAR 1 7266V 826403 29553 7 5 4FR kit SOLUTIONS DIAGNOSTIC IMT [place] 1 [id number] 694666 219045 50771 5 [id number] 5Fr Catheter Scientific ([id number]) ROADRUNNER .035 [employer] 1 R13813 302424 189253 57285 1 5 [id number] 260 glide wire (T56380) CXI SUPPORT .035 [employer] 1 W50859 229686 602460 99476 3 5 [id number] 135 CM STR catheter (P67740) INFLATOR Merit 1 CT0828 847679 801674 59148 7 5 [employer] Medical (CT8064) Evercross 7 x 8 x Medtronic 1 [id number] 474249 084644 11430 5 5 Q485171 135 Balloon ([id number]) Evercross 5 x 6 x Medtronic 1 [id number] 684122 530555 52109 7 5 [id number] 135 Balloon ([id number]) SHEATH 6FR Terumo 2 SSC683 792022 129603 38443 2 40 Challenge (FFY135) Visipro 7 x 27 x Medtronic 1 GZA18-73-24-910 748113 930622 83111 7 5 [id number] 135 Stent (URM15-52-51-696) EXOSEAL 6Fr Cardinal 1 EX600 549176 883744 71036 5 10 [id number] (EX600) Health Signature [employer] [place] Stage Time Signature Unsigned Intra-Procedure 09/13/2018 Isaias 11:41:56 AM Chela RT (R) (CV) Signatures Monitor : Isaias Signature : Chela RT Date : Time : [address] [place] [address]
[2018-09-13 09:05] LABS: BASOPHILS 0.5 % (0-2); EOSINOPHILS 1.5 % (0-7); HEMATOCRIT 42.1 % (36.0-48.0); HEMOGLOBIN 14.8 g/dL (12-16); IMMATURE GRANULOCYTES 0.3 % (0-5); LYMPHOCYTES 36.7 % (15-50); MCH 33.2 pg (26.0-34.0); MCHC 35.2 g/dL (31.0-37.0); MCV 94.4 fL (80.0-100.0); MONOCYTES 8.2 % (2-11); NEUTROPHILS 52.8 % (40-80); PLATELET COUNT 218 10x3/uL (130-400); RBC 4.46 10x6/uL (4.00-5.40); WBC 10.4 10x3/uL (4.8-10.8)
[2018-09-13 09:07] LABS: CALC OSMOLALITY 288 mosm/kg (275-300); CALCIUM 8.8 mg/dL (8.5-10.1); CARBON DIOXIDE 28.7 mmol/L (21.0-32.0); CHLORIDE - SERUM 108 mmol/L (98-107); CREATININE - SERUM 0.7 mg/dL (0.6-1.3); GLUCOSE 121 mg/dL (74-106); POTASSIUM - SERUM 4.5 mmol/L (3.5-5.1); SODIUM 145 mmol/L (136-145); UREA NITROGEN 10 mg/dL (7-18); eGFR NON AFRICAN AMERICAN 90 mL/min (90-120)
[2018-09-13 09:09] LABS: APTT 26.7 SECONDS (22.8-39.4); INR 1.03 (0.85-1.17)
[2018-09-13 09:20] VITALS: BP 121/67; Ht 167.6 cm; Wt 80.5 kg
--- NOTE | 2018-09-13 17:43 | NUR ---
1157 SEE POST PROCEDURE CHECKLIST FOR VITAL SIGN
== END 2018-09-13 16:30 | disposition home or self-care (01) ==
LOC: D.SP 08:32 → D.OPS 08:32 → D.SP 10:00 → D.RAD 10:00 → D.OPS 16:30
PROVIDERS: Radiology Diagnostic Radiology
DX: I70.213 Atherosclerosis of native arteries of extremities with intermittent claudication, bilateral legs (principal); T82.856A Stenosis of peripheral vascular stent, initial encounter; Z01.812 Encounter for preprocedural laboratory examination

== ENCOUNTER → 2018-09-15 10:07 | Outpatient (CLI) | payer MEDICARE ==
[2018-09-13 09:20] VITALS: BMI 28.6
[2018-09-15 11:05] LABS: ANION GAP 15.1 mmol/L (8-16); CALCIUM 8.2 mg/dL (8.5-10.1); CARBON DIOXIDE 26.7 mmol/L (21.0-32.0); CREATININE - SERUM 0.9 mg/dL (0.6-1.3); POTASSIUM - SERUM 3.8 mmol/L (3.5-5.1)
== END | disposition home or self-care (01) ==
LOC: D.LAB 10:07
PROVIDERS: Radiology Diagnostic Radiology
DX: N17.9 Acute kidney failure, unspecified (principal)

== ENCOUNTER → 2018-11-14 06:36 | Outpatient (CLI) | payer MEDICARE ==
[2018-09-13 09:20] VITALS: BMI 28.6
[2018-11-14 07:22] LABS: ALBUMIN 3.6 g/dL (3.4-5.0); BILIRUBIN - DIRECT 0.08 mg/dL (0.00-0.30); BILIRUBIN - INDIRECT 0.31 mg/dL (0.00-1.00); BILIRUBIN - TOTAL 0.39 mg/dL (0.2-1.3); PROTEIN - SERUM 7.7 g/dL (6.4-8.2)
== END | disposition home or self-care (01) ==
LOC: D.LAB 11-07 08:00 → D.US 11-07 08:00 → D.LAB 11-07 08:30 → D.US 06:36
PROVIDERS: ATTEND Internal Medicine Gastroenterology
DX: K76.0 Fatty (change of) liver, not elsewhere classified (principal); R74.8 Abnormal levels of other serum enzymes

== ENCOUNTER → 2018-11-23 12:46 | Outpatient (CLI) | payer MEDICARE ==
[2018-09-13 09:20] VITALS: BMI 28.6
== END | disposition home or self-care (01) ==
LOC: D.LAB 12:46
PROVIDERS: ATTEND Internal Medicine Gastroenterology
DX: K76.0 Fatty (change of) liver, not elsewhere classified (principal); R94.5 Abnormal results of liver function studies

== ENCOUNTER → 2019-01-16 08:44 | Outpatient (CLI) | payer MEDICARE ==
[2018-09-13 09:20] VITALS: BMI 28.6
== END | disposition home or self-care (01) ==
LOC: D.MRI 08:44
PROVIDERS: ATTEND Radiology Diagnostic Radiology
DX: N28.89 Other specified disorders of kidney and ureter (principal)

== ENCOUNTER 2019-08-08 18:30 | Outpatient (CLI) | payer MEDICARE ==
[2018-09-13 09:20] VITALS: BMI 28.6
== END 2019-08-08 23:59 | disposition home or self-care (01) ==
LOC: D.MAMMO 18:30
PROVIDERS: ATTEND Emergency Medicine
DX: Z12.31 Encounter for screening mammogram for malignant neoplasm of breast (principal)

== ENCOUNTER → 2020-02-14 07:39 | Outpatient (CLI) | payer MEDICARE ==
[2019-08-29 14:44] VITALS: BMI 27.9
== END | disposition home or self-care (01) ==
LOC: D.RAD 07:39
PROVIDERS: ATTEND Nurse Practitioner
DX: R13.19 Other dysphagia (principal)

== ENCOUNTER 2020-09-18 07:08 | Day surgery (SDC) | payer MEDICARE ==
[~2020-09-18] VITALS: Ht 167.6 cm; Wt 77.7 kg
[~2020-09-18 07:08] MED LIST changes: +ACETAMINOPHEN500 M1 PO; +CYCLOBENZAPRINE10 MG PO; +LAMICTAL100 MG PO
[2020-09-18 07:50] LABS: ANION GAP 12.3 mmol/L (8-16); CALCIUM 8.8 mg/dL (8.5-10.1); CARBON DIOXIDE 30.1 mmol/L (21.0-32.0); CREATININE - SERUM 0.9 mg/dL (0.6-1.3); POTASSIUM - SERUM 3.4 mmol/L (3.5-5.1)
[2020-09-18 07:53] LABS: HEMATOCRIT 45.2 % (36.0-48.0); HEMOGLOBIN 15.3 g/dL (12-16); MCH 32.6 pg (26.0-34.0); MCHC 33.8 g/dL (31.0-37.0); MCV 96.4 fL (80.0-100.0); MEAN PLATELET VOLUME 10.1 fL (7.4-10.4); RBC 4.69 10x6/uL (4.00-5.40); RDW 13.5 % (11.5-14.5); WBC 8.1 10x3/uL (4.8-10.8)
[2020-09-18 08:01] LABS: INR 1.01 (0.85-1.17); PROTIME 12.3 SECONDS (11.6-15.0)
[2020-09-18 08:02] LABS: APTT 27.2 SECONDS (22.8-39.4)
[2020-09-18 08:07] VITALS: Ht 167.6 cm; Wt 77.7 kg
--- NOTE | 2020-09-18 10:29 | NUR ---
PROCEDURE CANCELLED FOR TODAY. IV DC'D WITH CATH TIP INTACT AND PT GETTING DRESSED.
--- NOTE | 2020-09-18 10:34 | NUR ---
DISCHARGED VIA OWN ROLLATOR, ACCOMPANIED BY ANGELA NICHOLS, TO [facility] WITH SPOUSE DRIVING.
== END 2020-09-18 10:34 | disposition home or self-care (01) ==
LOC: D.OPS 07:08
PROVIDERS: Anesthesiology; ATTEND Internal Medicine Gastroenterology
DX: R19.7 Diarrhea, unspecified (principal); R11.2 Nausea with vomiting, unspecified; R10.9 Unspecified abdominal pain; Z53.8 Procedure and treatment not carried out for other reasons

== ENCOUNTER 2020-10-11 08:10 | Emergency (ER) | payer MEDICARE ==
[~2020-10-11] VITALS: Ht 167.6 cm; Wt 72.7 kg
[2020-10-11 08:12] VITALS: Ht 167.6 cm; Wt 72.7 kg
[2020-10-11] MEDS ORDERED: KEPPRA500 MG PO (08:55)
[2020-10-11] MEDS ORDERED: LISINOPRIL2.5 MG PO (08:59)
[2020-10-11] MEDS ORDERED: BACTRIM DS TAB1 EAC1 PO ×2 (09:00→09:01)
[2020-10-11] MEDS ORDERED: ULTRAM50 MG PO (09:40)
[2020-10-11 12:48] VITALS: BP 114/52
== END 2020-10-11 12:48 | disposition home or self-care (01) ==
LOC: D.ER 08:10
DX: S39.012A Strain of muscle, fascia and tendon of lower back, initial encounter (principal); I62.9 Nontraumatic intracranial hemorrhage, unspecified; Z86.73 Personal history of transient ischemic attack (TIA), and cerebral infarction without residual deficits; I10 Essential (primary) hypertension; Z72.0 Tobacco use

== ENCOUNTER 2020-10-12 07:57 | Emergency (ER) | payer MEDICARE ==
[~2020-10-12] VITALS: Ht 167.6 cm; Wt 86.4 kg
[~2020-10-12 07:57] MED LIST changes: +BACTRIM DS TAB1 EAC1 PO; +KEPPRA500 MG PO; +LISINOPRIL2.5 MG PO; +ULTRAM50 MG PO
[2020-10-12 08:06] VITALS: Ht 167.6 cm; Wt 86.4 kg
[2020-10-12 09:15] LABS: BASOPHILS 0.3 % (0-2); EOSINOPHILS 0.9 % (0-7); HEMATOCRIT 38.4 % (36.0-48.0); HEMOGLOBIN 13.5 g/dL (12-16); IMMATURE GRANULOCYTES 0.2 % (0-5); LYMPHOCYTE ABS# 1.88 10x3/uL (1.18-3.74); LYMPHOCYTES 21.9 % (15-50); MCH 32.5 pg (26.0-34.0); MCHC 35.2 g/dL (31.0-37.0); MCV 92.5 fL (80.0-100.0); MEAN PLATELET VOLUME 9.9 fL (7.4-10.4); MONOCYTES 9.9 % (2-11); NEUTROPHIL ABS# 5.73 10x3/uL (1.56-6.13); NEUTROPHILS 66.8 % (40-80); PLATELET COUNT 221 10x3/uL (130-400); RBC 4.15 10x6/uL (4.00-5.40); RDW 13.1 % (11.5-14.5); WBC 8.6 10x3/uL (4.8-10.8)
[2020-10-12 09:31] LABS: APTT 27.2 SECONDS (22.8-39.4); CALC OSMOLALITY 269 mosm/kg (275-300); CALCIUM 9.3 mg/dL (8.5-10.1); CARBON DIOXIDE 27.4 mmol/L (21.0-32.0); CHLORIDE - SERUM 97 mmol/L (98-107); CREATININE - SERUM 1.5 mg/dL (0.6-1.3); GLUCOSE 120 mg/dL (74-106); INR 1.07 (0.85-1.17); POTASSIUM - SERUM 3.7 mmol/L (3.5-5.1); PROTIME 12.9 SECONDS (11.6-15.0); SODIUM 130 mmol/L (136-145); UREA NITROGEN 36 mg/dL (7-18); eGFR NON AFRICAN AMERICAN 37 mL/min (90-120)
[2020-10-12 09:46] LABS: ALBUMIN 3.2 g/dL (3.4-5.0); ALKALINE PHOSPHATASE 103 U/L (30-120); ALT (SGPT) 21 U/L (10-68); BILIRUBIN - TOTAL 0.53 mg/dL (0.2-1.3); CKMB 2.4 U/L (0.0-3.6); CREATINE KINASE 136 UL (21-215); MAGNESIUM - SERUM 2.5 mg/dL (1.8-2.4); PROTEIN - SERUM 6.4 g/dL (6.4-8.2); THYROID STIMULATING HORMONE 0.34 uIU/mL (0.36-3.74); TROPONIN-I < 0.017 ng/mL (0.000-0.060)
[2020-10-12 10:02] VITALS: BP 143/62
== END 2020-10-13 05:31 | disposition other institution (70) ==
LOC: D.ER 07:57
PROVIDERS: Family Medicine
DX: J96.01 Acute respiratory failure with hypoxia (principal); E87.1 Hypo-osmolality and hyponatremia; N28.9 Disorder of kidney and ureter, unspecified; Z86.73 Personal history of transient ischemic attack (TIA), and cerebral infarction without residual deficits; E11.9 Type 2 diabetes mellitus without complications; I10 Essential (primary) hypertension; Z79.84 Long term (current) use of oral hypoglycemic drugs; R41.82 Altered mental status, unspecified